=== PATIENT | female | born 2000 ===

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

== ENCOUNTER 2018-10-26 19:58 | Observation (INO) ==
[2018-10-26] MEDS ORDERED: SODIUM CHLORIDE 0.9% 1,000 ML IV STA (20:29)
[2018-10-26 21:02] LABS: ABG Base Excess -6.8 MMOL/L (-2.5-2.5); ABG Oxygen Saturation 99.6 % (95-100); ABG PCO2 40.1 MM HG (35-48); ABG PH 7.293 (7.35-7.45); Allen Test Positive; Pt O2 Delivery Device Ventilator
[2018-10-26 21:11] LABS: Basophils % 0.4 % (0.0-0.8); Eosinophils # 0.1 10*3/uL (0.0-0.87); Eosinophils % 1.8 % (0.00-10.9); Hemoglobin 13.3 GM/DL (12.0-16.0); Immature Granulocytes % 0.3 %; Immature Granulocytes Absolute 0.02 #; Lymphocytes # 2.6 10*3/uL (1.4-4.0); Lymphocytes % 35.3 % (21.3-54.2); Mean Corpuscular HGB Conc 32.4 GM/DL (32-36); Mean Corpuscular Hemoglobin 28 PG (27-34); Mean Corpuscular Volume 85.8 FL (87-102); Mean Platelet Volume 9.5 FL (9.6-12.0); Monocytes # 0.4 10*3/uL (0.11-0.8); Monocytes % 5.9 % (1.7-12.7); Neutrophils # 4.2 10*3/uL (1.4-7.4); Neutrophils % 56.3 % (38.7-73.9); Platelet Count 405 T/CUMM (130-400); Red Blood Count 4.78 MC/CUMM (3.8-5.5); Red Cell Distribution Width 13.5 % (9.3-17.3); White Blood Count 7.4 T/CUMM (4-12)
[2018-10-26 21:14] LABS: Apearance,Urine CLEAR (Clear); Bacteria,Urine Occasional /HPF (Few); Bilirubin,Urine Negative (Negative); Blood, Urine Small mg/dL (Negative); Glucose,Urine (UA) Negative (Negative); Hyaline Casts,Urine 1 /LPF (0-3); Ketones,Urine Negative (Negative); Mucus,Urine Occasional /LPF (Occasional); Nitrite,Urine Negative (Negative); Protein,Urine Negative; RBC,Urine 1 /HPF (0-4); Urine Color Yellow (Yellow); Urine Specific Gravity 1.008 (1.001-1.035); Urine Urobilinogen < 2.0 EU/DL (0.2-1.0); WBC,Urine <1 /HPF (0-6)
[2018-10-26 21:37] LABS: Alanine Aminotransferase 89 U/L (13-56); Albumin 3.4 G/DL (3.4-5.0); Alkaline Phosphatase 101 U/L (45-117); Aspartate Amino Transferase 70 U/L (0-37); Bilirubin,Total < 0.39 MG/DL (0.2-1.0); Blood Urea Nitrogen 4 MG/DL (7-18); Calcium 7.3 MG/DL (8.5-10.1); Glucose 120 MG/DL (74-106); Osmolality,Calculated 285.7 MOS/KG (273-304); Potassium 3.4 MMOL/L (3.5-5.1); Sodium 145 MMOL/L (136-145); Total Protein 7.6 G/DL (6.4-8.3)
[2018-10-26] MEDS ORDERED: PROPOFOL 1,000 MG/100 ML BOTTLE IV ONE (22:06)
[2018-10-26] MEDS ORDERED: ONDANSETRON 4 MG/2 ML VIAL IV PRN (22:10)
[2018-10-26] MEDS ORDERED: ALBUTEROL 2.5 MG/3 ML NEB RESP TX PRN (22:10)
[2018-10-26] MEDS ORDERED: ACETAMINOPHEN 325 MG TABLET PO PRN (22:10)
[2018-10-26] MEDS: PROPOFOL 1,000 MG/100 ML BOTTLE IV SCH (22:15)
[2018-10-26] MEDS ORDERED: SODIUM BICARB INJ 50 MEQ in SODIUM CHLORIDE 0.45% 1,000 ML IV SCH (22:30)
[2018-10-26] MEDS ORDERED: PANTOPRAZOLE 40 MG VIAL IV SCH (22:30)
[2018-10-26] MEDS ORDERED: SODIUM CHLORIDE 0.45% IV SCH (22:30)
[2018-10-26] MEDS ORDERED: SODIUM BICARB INJ 50 MEQ in DEXTROSE 5% NACL 0.45% 1,000 ML IV SCH (22:30)
[2018-10-26] MEDS ORDERED: [UNRECOGNIZED DRUG - OTHER] IV SCH (22:30)
[2018-10-26] MEDS ORDERED: THIAMINE INJ 100 MG, FOLIC ACID INJ 1 MG, MULTIVITAMIN INJ 10 ML in SODIUM CHLORIDE 0.9... IV SCH (22:30)
[2018-10-26] MEDS ORDERED: SODIUM BICARB IV SCH (22:30)
[2018-10-26] MEDS ORDERED: THIAMINE IV SCH (22:30)
[2018-10-26] MEDS ORDERED: ENOXAPARIN 40 MG/0.4 ML SYRINGE SUBCUT SCH (22:30)
[2018-10-26] MEDS ORDERED: MAGNESIUM SULF RIDER 4 GM in PREMIX 1 EACH IV PRN (22:33)
[2018-10-26] MEDS ORDERED: MAGNESIUM SULF RIDER 2 GM in PREMIX 1 EACH IV PRN (22:33)
[2018-10-27] MEDS: POTASSIUM CHLORIDE RIDER 10 MEQ in PREMIX 1 EACH IV PRN ×4 (01:44→07:50)
[2018-10-27 03:46] LABS: ABG HCO3 20.3 MMOL/L (20-26); ABG Oxygen Saturation 99.3 % (95-100); ABG PCO2 39.6 MM HG (35-48); ABG PH 7.326 (7.35-7.45); ABG TCO2 18.1 MMOL/L (23-27); Allen Test Positive; Pt O2 Delivery Device Ventilator
[2018-10-27 04:27] LABS: Basophils % 0.3 % (0.0-0.8); Eosinophils # 0.1 10*3/uL (0.0-0.87); Eosinophils % 1.2 % (0.00-10.9); Hematocrit 39.4 VOL% (35.7-47.0); Hemoglobin 12.7 GM/DL (12.0-16.0); Immature Granulocytes % 0.5 %; Immature Granulocytes Absolute 0.05 #; Lymphocytes # 3.5 10*3/uL (1.4-4.0); Lymphocytes % 33.1 % (21.3-54.2); Mean Corpuscular HGB Conc 32.2 GM/DL (32-36); Mean Corpuscular Hemoglobin 28 PG (27-34); Mean Platelet Volume 9.6 FL (9.6-12.0); Monocytes # 0.6 10*3/uL (0.11-0.8); Monocytes % 6.1 % (1.7-12.7); Neutrophils # 6.1 10*3/uL (1.4-7.4); Neutrophils % 58.8 % (38.7-73.9); Platelet Count 402 T/CUMM (130-400); Red Blood Count 4.58 MC/CUMM (3.8-5.5); Red Cell Distribution Width 13.8 % (9.3-17.3); White Blood Count 10.4 T/CUMM (4-12)
[2018-10-27 04:59] LABS: Calcium 7.2 MG/DL (8.5-10.1); Osmolality,Calculated 286.6 MOS/KG (273-304); Potassium 3.5 MMOL/L (3.5-5.1)
[2018-10-27] MEDS: PROPOFOL 1,000 MG/100 ML BOTTLE IV SCH (05:11)
[2018-10-27] MEDS ORDERED: cefTRIAXone 1,000 MG in SYRINGE 1 EACH IV SCH (09:00)
[2018-10-27] MEDS ORDERED: HALOPERIDOL 5 MG/ML AMP IV ONE (09:20)
[2018-10-27] MEDS ORDERED: levETIRAcetam 500 MG TABLET PO SCH (12:00)
[2018-10-27 15:26] VITALS: BP 114/82
[2018-11-01] MEDS ORDERED: INFLUENZA VIRUS VACCINE 0.5 ML SYRINGE IM ONE (23:37)
== END 2018-10-27 15:33 | disposition home or self-care (01) ==
LOC: EDUNIT# → EDBD → N.ED 19:58 → N.EDINP 19:58 → N.ICU 21:59
PROVIDERS: ADMIT Internal Medicine; ATTEND Internal Medicine

== ENCOUNTER 2020-05-21 11:12 | Inpatient (IN) ==
[2020-05-21] MEDS ORDERED: ONDANSETRON 4 MG/2 ML VIAL IV PRN ×2 (12:22→16:44)
[2020-05-21] MEDS ORDERED: CITRIC ACID/SODIUM CITRATE 30 ML UDCUP PO ONE (12:28)
[2020-05-21] MEDS ORDERED: FAMOTIDINE 20 MG/2 ML VIAL IV ONE (12:29)
[2020-05-21] MEDS ORDERED: OXYTOCIN/LR 30 UNIT/1,000 ML BAG IV ONE ×2 (12:30→20:31)
[2020-05-21] MEDS ORDERED: OXYTOCIN/LR 20 UNIT/1,000 ML BAG IV ONE ×3 (12:30→16:44)
[2020-05-21] MEDS ORDERED: ceFAZolin 3,000 MG in SYRINGE 1 EACH IV SCH (12:30)
[2020-05-21 12:45] LABS: Basophils % 0.2 % (0.0-0.8); Eosinophils # 0.1 10*3/uL (0.0-0.87); Eosinophils % 0.6 % (0.00-10.9); Hematocrit 35.7 VOL% (35.7-47.0); Hemoglobin 11.7 GM/DL (12.0-16.0); Immature Granulocytes % 0.9 %; Immature Granulocytes Absolute 0.12 #; Lymphocytes # 2.6 10*3/uL (1.4-4.0); Lymphocytes % 19.1 % (21.3-54.2); Mean Corpuscular HGB Conc 32.8 GM/DL (32-36); Mean Platelet Volume 9.9 FL (9.6-12.0); Monocytes % 6.2 % (1.7-12.7); NRBC # 0.02 10*3/uL; Platelet Count 287 T/CUMM (130-400); Red Blood Count 4.15 MC/CUMM (3.8-5.5); Red Cell Distribution Width 15.7 % (9.3-17.3); White Blood Count 13.8 T/CUMM (4-12)
[2020-05-21 13:01] LABS: Albumin 2.3 G/DL (3.4-5.0); Bilirubin,Total 0.5 MG/DL (0.2-1.0); Calcium 8.7 MG/DL (8.5-10.1); Osmolality,Calculated 276.4 MOS/KG (273-304); Total Protein 7.5 G/DL (6.4-8.3)
[2020-05-21 13:15] LABS: INR 0.9; PT Patient Result 9.6 SECS (9.8-11.9); Partial Thromboplastin Time 29.1 SECS (23.9-33.8)
[2020-05-21] MEDS: LACTATED RINGERS 1,000 ML IV SCH ×2 (13:23→13:37)
[2020-05-21] MEDS ORDERED: miSOPROStoL 200 MCG TABLET ONE (14:12)
[2020-05-21] MEDS ORDERED: TRANEXAMIC ACID 1,000 MG/10 ML VIAL ONE (14:12)
[2020-05-21] MEDS ORDERED: METHYLERGONOVINE 0.2 MG/1 ML AMP ONE (14:13)
[2020-05-21] MEDS ORDERED: CARBOPROST TROMETHAMINE 250 MCG/ML AMP IM ONE (14:13)
[2020-05-21] MEDS ORDERED: OXYTOCIN 10 UNIT/ML VIAL ONE (15:49)
[2020-05-21 16:26] LABS: Cord Arterial Blood HCO3 20.3 MMOL/L
[2020-05-21 16:30] LABS: Cord Venous Blood HCO3 21.1 MMOL/L; Cord Venous Blood PCO2 50.4 MMHG; Cord Venous Blood PO2 20.8
[2020-05-21 16:36] LABS: Apearance,Urine CLEAR (Clear); Bilirubin,Urine Negative (Negative); Blood, Urine Negative (Negative); Glucose,Urine (UA) Negative (Negative); Ketones,Urine Negative (Negative); Mucus,Urine Occasional /LPF (Occasional); Nitrite,Urine Negative (Negative); Protein,Urine 30 MG/DL; Squamous Epithelial Cell,Urine Occasional /HPF (0-10); Urine Color Yellow (Yellow); Urine Specific Gravity 1.016 (1.001-1.035); Urine Urobilinogen < 2.0 EU/DL (0.2-1.0)
[2020-05-21] MEDS ORDERED: fentaNYL 100 MCG/2 ML VIAL ONE (16:39)
[2020-05-21] MEDS ORDERED: MORPHINE 10 MG/10 ML VIAL ONE (16:40)
[2020-05-21] MEDS ORDERED: MIDAZOLAM 2 MG/2 ML VIAL ONE (16:40)
[2020-05-21] MEDS ORDERED: RHO(D) IMMUNE GLOBULIN 300 MCG SYRINGE IM ONE (16:44)
[2020-05-21] MEDS ORDERED: MAGNESIUM HYDROXIDE SUSP 30 ML UDCUP PO PRN (16:44)
[2020-05-21] MEDS ORDERED: SIMETHICONE CHEW 80 MG TABLET PO PRN (16:44)
[2020-05-21] MEDS ORDERED: ACETAMINOPHEN 325 MG TABLET PO PRN (16:44)
[2020-05-21] MEDS ORDERED: LACTATED RINGERS 1,000 ML IV SCH (17:00)
[2020-05-21] MEDS ORDERED: ceFAZolin 1,000 MG in SYRINGE 1 EACH IV SCH (18:00)
[2020-05-21 19:54] LABS: Hematocrit 36.4 VOL% (35.7-47.0); Hemoglobin 11.6 GM/DL (12.0-16.0)
[2020-05-21] MEDS ORDERED: TRANEXAMIC ACID 1,000 MG in SODIUM CHLORIDE 0.9% 100 ML IV ONE (20:23)
[2020-05-21] MEDS: levETIRAcetam 500 MG TABLET PO SCH (20:41)
[2020-05-22 01:48] LABS: Hematocrit 29.3 VOL% (35.7-47.0); Hemoglobin 9.6 GM/DL (12.0-16.0)
[2020-05-22] MEDS ORDERED: ceFAZolin 1,000 MG in SYRINGE 1 EACH IV SCH (08:00)
[2020-05-22] MEDS: IBUPROFEN 800 MG TABLET PO PRN ×2 (08:16→18:18)
[2020-05-22] MEDS: DOCUSATE SODIUM 100 MG CAPSULE PO SCH ×2 (09:45→21:09)
[2020-05-22] MEDS: MULTIVITAMIN (PRENATAL) TABLET PO SCH (09:45)
[2020-05-22] MEDS: levETIRAcetam 500 MG TABLET PO SCH ×2 (09:46→21:09)
[2020-05-22] MEDS: CLINDAMYCIN 300 MG CAPSULE PO SCH ×2 (12:29→21:09)
[2020-05-23] MEDS: IBUPROFEN 800 MG TABLET PO PRN (01:11)
[2020-05-23] MEDS ORDERED: BISACODYL 10 MG SUPP RECTAL PRN (02:51)
[2020-05-23] MEDS: CLINDAMYCIN 300 MG CAPSULE PO SCH (04:51)
[2020-05-23 08:33] VITALS: BP 134/67
[2020-05-23] MEDS: DOCUSATE SODIUM 100 MG CAPSULE PO SCH (09:11)
[2020-05-23] MEDS: MULTIVITAMIN (PRENATAL) TABLET PO SCH (09:11)
[2020-05-23] MEDS: levETIRAcetam 500 MG TABLET PO SCH (09:11)
== END 2020-05-23 12:35 | disposition home or self-care (01) | DRG 540 ==
LOC: N.LDOUT 11:12 → N.LD 11:15 → N.OB 05-22 08:55
PROVIDERS: ADMIT Obstetrics & Gynecology; ATTEND Obstetrics & Gynecology
PROC: LDCSECT (ICD-10-PCS; 2020-05-21 14:30)